=== PATIENT | male | born 1940 | race Caucasian/White ===

== ENCOUNTER → 2020-09-18 | Outpatient (CLI) | payer MEDICARE ==
[2020-09-18 09:36] LABS: INR 1.04 (0.85-1.15); PARTIAL THROMBOPLASTIN TIME 26.5 SEC (26.3-35.5); PROTHROMBIN TIME 11.2 SEC (9.6-11.6)
--- NOTE | 2020-09-18 10:15 | NUR ---
U/S GD BILATERAL THYROID FNA PROCEDURE PERFORMED BY DR Lionel BRODY. FIRST PUNCTURE SITE LT NECK THEN SECOND PUNCTURE RT NECK. PATIENT TOLERATED PROCEDURE WELL. SPECIMEN X 10 COLLECTED AND SENT TO LAB. END OF PROCEDURE AT 0945. ASPIRATION NEEDLES REMOVED AND DRESSING APPLIED. NO BLEEDING NOTED. DISCHARGE INSTRUCTIONS GIVEN TO PATIENT AND VERBALIZED UNDERSTANDING. DISCHARGED VIA AMBULATION AT 1015 AAO X3 WITH NO C/O PAIN.
== END | disposition home or self-care (01) ==
LOC: RAH 07:47
PROVIDERS: ATTEND Family Medicine
DX: E04.2 Nontoxic multinodular goiter (principal); E11.22 Type 2 diabetes mellitus with diabetic chronic kidney disease; I12.9 Hypertensive chronic kidney disease with stage 1 through stage 4 chronic kidney disease, or unspecified chronic kidney disease; N18.30 Chronic kidney disease, stage 3 unspecified; I48.20 Chronic atrial fibrillation, unspecified; D68.69 Other thrombophilia; G47.00 Insomnia, unspecified; E78.49 Other hyperlipidemia; I25.10 Atherosclerotic heart disease of native coronary artery without angina pectoris; J44.9 Chronic obstructive pulmonary disease, unspecified; E66.01 Morbid (severe) obesity due to excess calories; K21.9 Gastro-esophageal reflux disease without esophagitis; Z79.01 Long term (current) use of anticoagulants; Z79.899 Other long term (current) drug therapy; Z90.89 Acquired absence of other organs; Z90.49 Acquired absence of other specified parts of digestive tract; Z98.890 Other specified postprocedural states; Z82.0 Family history of epilepsy and other diseases of the nervous system; Z83.3 Family history of diabetes mellitus; Z82.49 Family history of ischemic heart disease and other diseases of the circulatory system; Z87.891 Personal history of nicotine dependence; Z88.0 Allergy status to penicillin
CPT/HCPCS: 10005; 10006; 36415; 76942; 85610; 85730

== ENCOUNTER → 2021-08-19 | Outpatient (CLI) | payer MEDICARE | END | disposition home or self-care (01) | LOC: OIH 12:55 | PROVIDERS: ATTEND Family Medicine | DX: M47.812 Spondylosis without myelopathy or radiculopathy, cervical region (principal) | CPT/HCPCS: 72040 ==